=== PATIENT | female | born 1960 | race Caucasian/White ===

== ENCOUNTER → 2016-08-01 | Outpatient (CLI) | payer MEDICAID ==
--- NOTE | 2016-08-01 19:51 | WWHP ---
CHIEF COMPLAINT: The patient is here for her routine gynecologic exam. HPI: This is a 56-year-old G3, P2-0-1-2 with an LMP of 07/09/2016. The patient is on MonoNessa for control. The patient is without gynecologic complaints. PAST MEDICAL HISTORY: Unremarkable. MEDICATIONS: MonoNessa 1 daily. ALLERGIES: No known drug allergies. PAST SURGICAL HISTORY: D&C 1995 and eye surgery in the past. 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 SOCIAL HISTORY: She denies tobacco and drug use. She has about 3 alcoholic drinks per week. She has been since 2013 and this is her second marriage. 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 FAMILY HISTORY: Unchanged from the 2016 H&P. REVIEW OF SYSTEMS: She has lost 2 pounds over the last year. She denies respiratory, cardiac or GI problems. PHYSICAL EXAM: Blood pressure 109/71. Height 5 feet 3 inches. Weight 129 pounds. Temperature 98.0, pulse 57. This is a well-developed, well-nourished white female who is alert and oriented x3, in no acute distress. HEENT is within normal limits. NECK: Supple without mass or thyromegaly. CHEST AND LUNGS: Clear to auscultation. HEART: Regular rate and rhythm. Breasts are without mass or discharge. Axillary is negative for adenopathy. BACK: Negative for CVA tenderness. ABDOMEN: Soft, nontender, without palpable masses. PELVIC: Normal external genitalia. Cervix and vagina appear normal. There is no evidence of atrophy or prolapse. The uterus is midposition, nongravid size and nontender. There are no palpable adnexal masses or tenderness. Rectovaginal is negative for mass or tenderness and is negative for occult blood. EXTREMITIES: Nontender. IMPRESSION: 1. A 56-year-old female with normal gynecologic exam doing well on oral contraception. 2. Probable perimenopause based on previous FSH testing. PLAN: 1. Pap smear was deferred, since she had a normal one last year. 2. Self-breast examination was discussed. 3. Mammogram is due, and a slip was given to patient for this. 4. We will plan on repeating FSH testing at the latest part of her inactive pill week. Consider discontinuing oral contraception if FSH is greater than 50. 5. Osteoporosis prevention was discussed. She understands she should increase calcium intake to 120% of the daily value if we do stop control pills for elevated FSH. 6. I have recommended screening colonoscopy based on her age. 7. She will return in 1 year.
== END | disposition home or self-care (01) ==
LOC: WWCWWP 07:55
PROVIDERS: ATTEND Obstetrics & Gynecology

== ENCOUNTER → 2018-02-18 | Outpatient (CLI) | payer MEDICAID ==
[2018-02-18 08:04] VITALS: BP 110/60; PULSE 66; TEMP 98.3; BMI 21.6
--- NOTE | 2018-02-18 08:43 | P.HPOB ---
History of Present Illness H&P Date: 02/18/18 Chief Complaint: The patient is here for her routine gynecologic exam and mammogram. This is a 58-year-old 012 with an LMP of early February 2017. The patient states that has been one full year since her LMP. She discontinued -control pills in December 2016. She has used condoms since then. She has been experiencing hot flashes during the night and day. She can have several in one hour. She states they are tolerable. She is otherwise without complaints. Review of Systems The patient has lost 7 pounds over the last year. She denies respiratory, cardiac, or G.I. problems. 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 History of Any Multi-Drug Resistant Organisms: None Reported Additional Past Surgical History / Comment(s): cataract right eye, D&C 1994. Past Psychological History: No Psychological Hx Reported Smoking Status: Never smoker Past Alcohol Use History: Occasional (3 per week) Past Drug Use History: None Reported Additional History: She has been since 2013 and this is her 2nd marriage. 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 - Past Family History Father Family Medical History: Diabetes Mellitus Additional Family Medical History / Comment(s): Paternal grandmother had breast cancer. Medications and Allergies Home Medications Medication Instructions Recorded Confirmed Type No Known Home Medications 02/18/18 02/18/18 History Allergies Allergy/AdvReac Type Severity Reaction Status Date / Time No Known Allergies Allergy Unverified 02/18/18 08:02 Exam Vital Signs Temp Pulse BP 02/18/18 08:02 98.3 F 66 110/60 Intake and Output 02/17/18 02/18/18 02/18/18 22:59 06:59 14:59 Other: Weight 55.338 kg Height 5'3", BMI 21.6. This is a well-developed well-nourished white female who is alert and oriented times 3 in no acute distress. HEENT: Within normal limits. NECK: Supple without mass or thyromegaly. CHEST AND LUNGS: Clear to auscultation. HEART: Regular rate and rhythm. BREASTS: Are without mass or discharge. There is slight central nipple inversion on the left side which the patient states has been this way for many years. AXILLARY EXAM: Negative for adenopathy. BACK: Negative for CVA tenderness. ABDOMEN: Soft, nontender, without palpable masses. PELVIC EXAM: Normal external genitalia with minimal atrophy. Cervix and vagina appear normal without significant atrophy. There is no unusual discharge. There is no evidence of prolapse. The uterus is midposition, nongravid size and nontender. There are no palpable adnexal masses or tenderness. RECTAL EXAM: rectovaginal exam is negative for mass or tenderness and is negative for occult blood. EXTREMITIES: Nontender. IMPRESSION: 1. 58-year-old postmenopausal female with vasomotor symptoms and one year of amenorrhea. 2. Normal gynecologic exam. PLAN: 1. Pap smear was performed. 2. Self breast awareness was discussed with the patient. 3. Screening mammogram will be done today. 4. Osteoporosis prevention was discussed. 5. We have discussed changes with the menopause. She will call if her vasomotor symptoms are severe. She should not be able to get at this point. She was instructed to call if he has any vaginal bleeding. 6. I have recommended screening colonoscopy based on her age. She states she knows who she would like to see for this. 7. She will return in one year.
--- NOTE | 2018-02-20 13:19 | MM ---
Reason for exam: screening (asymptomatic). Last mammogram was performed 3 years and 8 months ago. History: Patient is postmenopausal and had first child at age 37. Family history of breast cancer in paternal grandmother. Taking hormonal contraceptives for 5 years 6 months. Physical Findings: A clinical breast exam by your physician is recommended on an annual basis and results should be correlated with mammographic findings. MG Screening Mammo w CAD Bilateral CC and MLO view(s) were taken. Prior study comparison: June 14, 2014, bilateral MG screening mammo w CAD. The breast tissue is extremely dense which could obscure a lesion on mammography. Faint punctate regional calcifications right breast. No significant changes when compared with prior studies. ASSESSMENT: Negative, BI-RAD 1 RECOMMENDATION: Routine screening mammogram of both breasts in 1 year. Patient should continue monthly self breast exams. A negative report should not preclude additional follow up of suspicious palpable abnormalities.
== END | disposition home or self-care (01) ==
LOC: WWCWWP 07:37
PROVIDERS: ATTEND Obstetrics & Gynecology
DX: Z12.31 Encounter for screening mammogram for malignant neoplasm of breast (principal)
CPT/HCPCS: 77067

== ENCOUNTER → 2019-12-10 | Outpatient (CLI) | payer MEDICAID | END | disposition home or self-care (01) | LOC: LABWHC1 11:09 | PROVIDERS: ATTEND Nurse Practitioner Family | DX: Z20.9 Contact with and (suspected) exposure to unspecified communicable disease (principal) ==

== ENCOUNTER 2021-05-12 10:35 | Inpatient (IN) | payer BC, MEDICAID ==
--- NOTE | 2021-05-12 11:23 | ED ---
Weakness HPI - General Chief complaint: Weakness Stated complaint: cough & weakness Time Seen by Provider: 05/12/21 10:46 Source: patient, RN notes reviewed Mode of arrival: ambulatory Limitations: no limitations - History of Present Illness Initial comments: 61-year-old female presents to the emergency department complaining of weakness for approximately the last week. She notes that she's had Covid like symptoms with decreased appetite, fever, weakness, cough. She notes that she came in today for evaluation. She notes that she became increasingly short of breath. Patient notes that she does not use at home oxygen. Patient was sent from [facility] to rule out pneumonia. Patient was resting comfortably in bed during the exam interview. She denied any chest pain headache nausea vomiting diarrhea constipation fatigue chills. - Related Data Home Medications Medication Instructions Recorded Confirmed No Known Home Medications 02/18/18 05/12/21 Allergies Allergy/AdvReac Type Severity Reaction Status Date / Time No Known Allergies Allergy Verified 05/12/21 11:58 Review of Systems ROS Statement: Those systems with pertinent positive or pertinent negative responses have been documented in the HPI. ROS Other: All systems not noted in ROS Statement are negative. 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 History of Any Multi-Drug Resistant Organisms: None Reported Additional Past Surgical History / Comment(s): cataract right eye, D&C 1994. Past Psychological History: No Psychological Hx Reported Smoking Status: Never smoker Past Alcohol Use History: Occasional Past Drug Use History: None Reported - Past Family History Father Family Medical History: Diabetes Mellitus Additional Family Medical History / Comment(s): Paternal grandmother had breast cancer. General Exam Limitations: no limitations General appearance: alert, in no apparent distress Head exam: Present: atraumatic, normocephalic, normal inspection Eye exam: Present: normal appearance, PERRL, EOMI. Absent: scleral icterus, conjunctival injection, periorbital swelling ENT exam: Present: normal exam, mucous membranes moist Neck exam: Present: normal inspection Respiratory exam: Present: normal lung sounds bilaterally. Absent: respiratory distress, wheezes, rales, rhonchi, stridor Cardiovascular Exam: Present: regular rate, normal rhythm, normal heart sounds. Absent: systolic murmur, diastolic murmur, rubs, gallop, clicks Extremities exam: Present: normal inspection, full ROM, normal capillary refill. Absent: tenderness, pedal edema, joint swelling, calf tenderness Neurological exam: Present: alert, oriented X3 Psychiatric exam: Present: normal affect, normal mood Skin exam: Present: warm, dry, intact, normal color. Absent: rash Course Vital Signs 05/12/21 05/12/21 10:36 12:16 Temperature 99.3 F 98.6 F Pulse Rate 78 68 Respiratory 18 18 Rate Blood Pressure 82/57 94/58 O2 Sat by Pulse 89 L 94 L Oximetry EKG Findings - EKG Comments: EKG Findings:: Ventricular rate 74 bpm, TN interval 140 ms, QRS duration 78 ms, QTC 439 ms, PRT axes 54/16/-8, normal sinus rhythm with low voltage QRS, nonspecific T-wave abnormality, abnormal ECG. Medical Decision Making - Medical Decision Making 61-year-old female with weakness for the past week, present with Covid like symptoms. Patient's she didn't saturation on room air at arrival was 89%. Labs, Covid test, chest x-ray, 2 L of oxygen via nasal cannula, 10 mg of Decadron ordered. Labs consistent with Covid infection with elevated CRP, LDH. Chest x-ray shows mild diffuse bilateral patchy infiltrates consistent with COVID-19 infection. Covid test positive. Given patient's hypoxia and need for some metal oxygen she will be admitted. Case discussed with Dr. Ingram, patient be admitted. Dr. Lomeli was consulted and OF the admit with pulmonary on consult. - Lab Data Result diagrams: 05/12/21 11:04 05/12/21 11:04 Lab Results 05/12/21 05/12/21 05/12/21 Range/Units 11:04 11:04 11:04 WBC 8.7 (3.8-10.6) k/uL RBC 4.06 (3.80-5.40) m/uL Hgb 12.6 (11.4-16.0) gm/dL Hct 35.7 (34.0-46.0) % MCV 87.9 (80.0-100.0) fL MCH 31.0 (25.0-35.0) pg MCHC 35.3 (31.0-37.0) g/dL RDW 12.6 (11.5-15.5) % Plt Count 359 (150-450) k/uL MPV 7.4 Neutrophils % 80 % Lymphocytes % 13 % Monocytes % 3 % Eosinophils % 0 % Basophils % 1 % Neutrophils # 7.0 (1.3-7.7) k/uL Lymphocytes # 1.1 (1.0-4.8) k/uL Monocytes # 0.3 (0-1.0) k/uL Eosinophils # 0.0 (0-0.7) k/uL Basophils # 0.0 (0-0.2) k/uL PT 9.8 (9.0-12.0) sec INR 0.9 (<1.2) APTT 23.6 (22.0-30.0) sec Sodium 131 L (137-145) mmol/L Potassium 4.8 (3.5-5.1) mmol/L Chloride 97 L (98-107) mmol/L Carbon Dioxide 26 (22-30) mmol/L Anion Gap 8 mmol/L BUN 16 (7-17) mg/dL Creatinine 0.81 (0.52-1.04) mg/dL Est GFR (CKD-EPI)AfAm >90 (>60 ml/min/1.73 sqM) Est GFR (CKD-EPI)NonAf 80 (>60 ml/min/1.73 sqM) Glucose 116 H (74-99) mg/dL Plasma Lactic Acid Waqas (0.7-2.0) mmol/L Calcium 8.7 (8.4-10.2) mg/dL Magnesium 2.4 H (1.6-2.3) mg/dL Total Bilirubin 0.4 (0.2-1.3) mg/dL AST 56 H (14-36) U/L ALT 29 (4-34) U/L Alkaline Phosphatase 54 (38-126) U/L Lactate Dehydrogenase 1688 H (313-618) U/L C-Reactive Protein 5.3 H (<1.0) mg/dL Total Protein 6.7 (6.3-8.2) g/dL Albumin 3.7 (3.5-5.0) g/dL Coronavirus (PCR) (Not Detectd) 05/12/21 05/12/21 Range/Units 11:04 11:04 WBC (3.8-10.6) k/uL RBC (3.80-5.40) m/uL Hgb (11.4-16.0) gm/dL Hct (34.0-46.0) % MCV (80.0-100.0) fL MCH (25.0-35.0) pg MCHC (31.0-37.0) g/dL RDW (11.5-15.5) % Plt Count (150-450) k/uL MPV Neutrophils % % Lymphocytes % % Monocytes % % Eosinophils % % Basophils % % Neutrophils # (1.3-7.7) k/uL Lymphocytes # (1.0-4.8) k/uL Monocytes # (0-1.0) k/uL Eosinophils # (0-0.7) k/uL Basophils # (0-0.2) k/uL PT (9.0-12.0) sec INR (<1.2) APTT (22.0-30.0) sec Sodium (137-145) mmol/L Potassium (3.5-5.1) mmol/L Chloride (98-107) mmol/L Carbon Dioxide (22-30) mmol/L Anion Gap mmol/L BUN (7-17) mg/dL Creatinine (0.52-1.04) mg/dL Est GFR (CKD-EPI)AfAm (>60 ml/min/1.73 sqM) Est GFR (CKD-EPI)NonAf (>60 ml/min/1.73 sqM) Glucose (74-99) mg/dL Plasma Lactic Acid Waqas 1.3 (0.7-2.0) mmol/L Calcium (8.4-10.2) mg/dL Magnesium (1.6-2.3) mg/dL Total Bilirubin (0.2-1.3) mg/dL AST (14-36) U/L ALT (4-34) U/L Alkaline Phosphatase (38-126) U/L Lactate Dehydrogenase (313-618) U/L C-Reactive Protein (<1.0) mg/dL Total Protein (6.3-8.2) g/dL Albumin (3.5-5.0) g/dL Coronavirus (PCR) Detected A (Not Detectd) - EKG Data -: EKG Interpreted by Mn EKG shows normal: sinus rhythm Rate: normal EKG Comments: Ventricular rate 74 bpm, TN interval 140 ms, QRS duration 78 ms, QTC 439 ms, PRT axes 54/16/-8, normal sinus rhythm with low voltage QRS, nonspecific T- wave abnormality, abnormal ECG. - Radiology Data Radiology results: report reviewed, image reviewed Chest x-ray: Mild diffuse increase in lung markings mid lower lung mitchell. Disposition Clinical Impression: Pneumonia due to COVID-19 virus, Hypoxia, Hyponatremia Disposition: ADMITTED IP TO THIS HOSP Condition: Stable Is patient prescribed a controlled substance at d/c from ED?: No Referrals: Andrea Cruz MD [Primary Care Provider] - 1-2 days Time of Disposition: 12:44
--- NOTE | 2021-05-12 11:27 | XR ---
EXAMINATION TYPE: XR chest 1V portable DATE OF EXAM: 05/12/2021 COMPARISON: None INDICATION: Cough and congestion TECHNIQUE: Single frontal view of the chest is obtained. FINDINGS: The heart size is normal. The pulmonary vasculature is normal. Mild infiltrate is present diffusely in the mid lower lung field. Correlate for atypical pneumonia IMPRESSION: 1. Mild diffuse increase in lung markings mid and lower lung mitchell. Correlate for atypical
[2021-05-12 11:40] LABS: Basophils % (A) 1 %; Eosinophils % (A) 0 %; HCT 35.7 % (34.0-46.0); HGB 12.6 gm/dL (11.4-16.0); Lymphocytes # (A) 1.1 k/uL (1.0-4.8); Lymphocytes % (A) 13 %; MCHC 35.3 g/dL (31.0-37.0); MCV 87.9 fL (80.0-100.0); Mean Platelet Volume 7.4; Monocytes # (A) 0.3 k/uL (0-1.0); Monocytes % (A) 3 %; Neutrophils % (A) 80 %; Platelet Count 359 k/uL (150-450); RBC 4.06 m/uL (3.80-5.40); RDW 12.6 % (11.5-15.5); WBC 8.7 k/uL (3.8-10.6)
[2021-05-12 11:50] LABS: INR 0.9 (<1.2); Partial Thromboplastin Time 23.6 sec (22.0-30.0); Prothrombin Time 9.8 sec (9.0-12.0)
[2021-05-12 11:55] LABS: ALT 29 U/L (4-34); AST 56 U/L (14-36); African American GFR (CKD) >90 (>60 ml/min/1.73 sqM); Albumin 3.7 g/dL (3.5-5.0); Alkaline Phosphatase 54 U/L (38-126); Anion Gap 8 mmol/L; Blood Urea Nitrogen 16 mg/dL (7-17); C Reactive Protein 5.3 mg/dL (<1.0); Calcium 8.7 mg/dL (8.4-10.2); Carbon Dioxide 26 mmol/L (22-30); Chloride 97 mmol/L (98-107); Glucose 116 mg/dL (74-99); LDH 1688 U/L (313-618); Magnesium 2.4 mg/dL (1.6-2.3); Non-African American GFR(CKD) 80 (>60 ml/min/1.73 sqM); Potassium 4.8 mmol/L (3.5-5.1); Sodium 131 mmol/L (137-145); Total Bilirubin 0.4 mg/dL (0.2-1.3); Total Protein 6.7 g/dL (6.3-8.2)
[2021-05-12] MEDS ORDERED: DEXAMETHASONE SOD PHOSPHATE 10 MG/ML 1 ML VIAL IVP STA (12:08)
[2021-05-12] MEDS ORDERED: SODIUM CHLORIDE 0.9% 1,000 ML IV STA (12:17)
[2021-05-12] MEDS ORDERED: NALOXONE 0.4 MG/ML 1 ML VIAL IV PRN (12:44)
[2021-05-12] MEDS: SODIUM CHLORIDE 0.9% 1,000 ML IV SCH ×2 (14:56→22:11)
--- NOTE | 2021-05-12 16:24 | P.CNPUL ---
History of Present Illness Consult date: 05/12/21 Reason for consult: dyspnea, hypoxemia, pneumonia History of present illness: 61-year-old female patient, presented to the hospital because of one-week history of worsening shortness of breath and the cough and generalized weakness and fatigue. The patient also diminished appetite, no nausea or vomiting abdominal pain. No headaches. The patient was feeling rundown. She was hypoxic and currently she is on 2 L of oxygen by nasal cannula to bring his saturation above 90%. Chest x-ray showing bilateral mid and lower lung mitchell pulmonary infiltrates. The patient was diagnosed having COVID 19 infection. She is not vaccinated. She has not received any outpatient treatment. She is hemodynamically stable. Correlation profile is normal. LDH level is 1688, CRP level is at 5.3, sodium level is at 131, white cell count is 8.7. She was started on Decadron. She started on Lovenox. Review of Systems Constitutional: Reports fatigue, Reports weakness Eyes: denies as per HPI, denies blurred vision, denies bulging eye, denies decreased vision, denies diplopia, denies discharge, denies dry eye, denies irritation, denies itching, denies pain, denies photophobia, denies loss of peripheral vision, denies loss of vision, denies tunnel vision/blind spots Ears: deny: decreased hearing, ear discharge, earache, tinnitus Breasts: absent: as per HPI, change in shape, gynecomastia, masses, nipple discharge, pain, skin changes, swelling Cardiovascular: Reports decreased exercise tolerance, Reports dyspnea on exertion Respiratory: Reports dyspnea Gastrointestinal: Reports as per HPI Genitourinary: Reports as per HPI Menstruation: Reports as per HPI Musculoskeletal: Reports as per HPI Musculoskeletal: absent: ankle pain, ankle stiffness, ankle swelling, as per HPI, elbow pain, elbow stiffness, elbow swelling, foot pain, foot stiffness, foot swelling, hand pain, hand stiffness, hand swelling, hip pain, hip stiffness, hip swelling, knee pain, knee stiffness, knee swelling, shoulder pain, shoulder stiffness, shoulder swelling, wrist pain, wrist stiffness, wrist swelling Integumentary: Reports as per HPI Neurological: Reports as per HPI, Reports weakness Psychiatric: Reports as per HPI Endocrine: Reports as per HPI Hematologic/Lymphatic: Reports as per HPI Allergic/Immunologic: Reports as per HPI Past Medical History Past Medical History: No Reported History 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 History of Any Multi-Drug Resistant Organisms: None Reported Additional Past Surgical History / Comment(s): cataract right eye, D&C 1994. Past Psychological History: No Psychological Hx Reported Smoking Status: Never smoker Past Alcohol Use History: Occasional Past Drug Use History: None Reported - Past Family History Father Family Medical History: Diabetes Mellitus Additional Family Medical History / Comment(s): Paternal grandmother had breast cancer. Medications and Allergies Home Medications Medication Instructions Recorded Confirmed Type No Known Home Medications 02/18/18 05/12/21 History Allergies Allergy/AdvReac Type Severity Reaction Status Date / Time No Known Allergies Allergy Verified 05/12/21 11:58 Physical Exam Vitals: Vital Signs Temp Pulse Resp BP Pulse Ox 05/12/21 15:09 93 L 05/12/21 14:50 98.5 F 74 18 96/59 88 L 05/12/21 12:16 98.6 F 68 18 94/58 94 L 05/12/21 10:36 99.3 F 78 18 82/57 89 L Intake and Output 05/12/21 05/12/21 05/12/21 06:59 14:59 22:59 Other: Weight 56.699 kg General appearance: alert, in no apparent distress, the patient has normal breathing. Breathing is nonlabored and the patient is on 2 L about 2 by nasal cannula. Head exam: Present: atraumatic, normocephalic, normal inspection Eye exam: Present: normal appearance, PERRL, EOMI. Absent: scleral icterus, conjunctival injection, periorbital swelling ENT exam: Present: normal exam, mucous membranes moist Neck exam: Present: normal inspection Respiratory exam: The patient has crackles in the mid and lower lung mitchell bilaterally. Cardiovascular Exam: Present: regular rate, normal rhythm, normal heart sounds. Absent: systolic murmur, diastolic murmur, rubs, gallop, clicks Extremities exam: Present: normal inspection, full ROM, normal capillary refill. Absent: tenderness, pedal edema, joint swelling, calf tenderness Neurological exam: Present: alert, oriented X3 Psychiatric exam: Present: normal affect, normal mood Skin exam: Present: warm, dry, intact, normal color. Absent: rash Results - Laboratory Findings CBC and BMP: 05/12/21 11:04 05/12/21 11:04 PT/INR, D-dimer PT 9.8 sec (9.0-12.0) 05/12/21 11:04 INR 0.9 (<1.2) 05/12/21 11:04 Abnormal lab findings: Abnormal Labs 05/12/21 05/12/21 11:04 11:04 Sodium 131 L Chloride 97 L Glucose 116 H Magnesium 2.4 H AST 56 H Lactate Dehydrogenase 1688 H C-Reactive Protein 5.3 H Coronavirus (PCR) Detected A - Diagnostic Findings Chest x-ray: image reviewed Assessment and Plan Plan: 1 acute COVID 19 related pneumonia. Symptoms onset was less than a week. Patient was diagnosed today. The patient is not vaccinated. 2 acute hypoxic respiratory failure secondary to above 3 elevated inflammatory markers secondary to above 4 constant pressure symptoms secondary to above Plan Oxygen 2 L to maintain a saturation above 90% Stop the patient come initial Decadron 6 mg he'll daily and Remdesivir per protocol. The patient falls within the window and she qualifies for Remdesivir Lovenox 40 mg subcu for DVT prophylaxis Check pro calcitonin level Multivitamins including vitamin C and vitamin D and zinc We'll continue to follow.
[2021-05-12] MEDS ORDERED: REMDESIVIR 200 MG in SODIUM CHLORIDE 0.9% 250 ML IVPB ONE (16:30)
--- NOTE | 2021-05-12 21:56 | P.HPIM ---
History of Present Illness H&P Date: 05/12/21 Chief Complaint: Generalized weakness and fatigue. Patient is a 61-year-old female without significant past medical history presents to ER with complaints of generalized weakness and fatigue for the past 1 week. Patient does have decreased appetite and subjective fevers and cough without sputum production. Came to ER for evaluation. She is also getting more short of breath. Otherwise denied any complaints of chest pain. No nausea vomiting or abdominal pain or diarrhea. On admission blood pressure was 82/57 pulse ox 89% on room air, heart rate 78 and T-max 99.3. Chest x-ray showed mild diffuse increase in lung markings mild in lower lung mitchell. Correlate for atypical pneumonia. EKG showed normal sinus rhythm. Laboratory showed sodium 131 potassium 4.8 chloride 97 BUN 16 and creatinine 0.81 Magnesium 2.4 ferritin 06/12/2007 AST 56 ALT 29 alk phos 54 LDH 1688 CRP 5.3 and procalcitonin level is 0.06 Coronavirus PCR detected. Review of Systems Constitutional: Does have subjective fevers and chills. Generalized weakness and fatigue.. Abdomen: Patient denied nausea vomiting and diarrhea and abdominal pain. Cardiovascular: Patient denies any chest pain +short of breath no palpitations. Respiratory: Complaints of cough without sputum production and shortness of breath. Neurologic: Patient denied any numbness or tingling headache. Musculoskeletal: Patient denies any complaints of joint swelling or deformity. Skin: Negative Psychiatric: Negative Endocrine: No heat or cold intolerance. No recent weight gain. Genitourinary: No dysuria or hematuria. 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 History of Any Multi-Drug Resistant Organisms: None Reported Additional Past Surgical History / Comment(s): cataract right eye, D&C 1994. Past Psychological History: No Psychological Hx Reported Smoking Status: Never smoker Past Alcohol Use History: Occasional Past Drug Use History: None Reported - Past Family History Father Family Medical History: Diabetes Mellitus Additional Family Medical History / Comment(s): Paternal grandmother had breast cancer. Medications and Allergies Home Medications Medication Instructions Recorded Confirmed Type No Known Home Medications 02/18/18 05/12/21 History Allergies Allergy/AdvReac Type Severity Reaction Status Date / Time No Known Allergies Allergy Verified 05/12/21 11:58 Physical Exam Vitals: Vital Signs Temp Pulse Pulse Resp BP BP Pulse Ox 05/12/21 21:04 99.1 F 83 15 99/63 90 L 05/12/21 19:19 65 20 98/59 92 L 05/12/21 17:28 98.6 F 74 20 98/63 92 L 05/12/21 16:35 88 18 89 L 05/12/21 16:30 103 H 83 L 05/12/21 15:09 93 L 05/12/21 14:50 98.5 F 74 18 96/59 88 L 05/12/21 12:16 98.6 F 68 18 94/58 94 L 05/12/21 10:36 99.3 F 78 18 82/57 89 L Intake and Output 05/12/21 05/12/21 05/12/21 06:59 14:59 22:59 Other: Weight 56.699 kg PHYSICAL EXAMINATION: Patient is lying in the bed comfortably, no acute distress, awake alert and oriented.. HEENT: Normocephalic. Neck is supple. Pupils reactive. Nostrils clear. Oral cavity is moist. Neck reveals no JVD, carotid bruits, or thyromegaly. CHEST EXAMINATION: Trachea is central. Symmetrical expansion. Scattered coarse sounds. Nonlabored breathing.. CARDIAC: Normal S1, S2 with no gallops. No murmurs ABDOMEN: Soft. Bowel sounds normal. No organomegaly. No abdominal bruits. Extremities: reveal no edema. No clubbing or cyanosis Neurologically awake, alert, oriented x3 with well-coordinated movements. No focal deficits noted Skin: No rash or skin lesions. Psychiatric: Cooperative. Nonsuicidal Musculoskeletal: No joint swelling or deformity. Normal range of motion. Results CBC & Chem 7: 05/12/21 11:04 05/12/21 11:04 Labs: Abnormal Lab Results - Last 24 Hours (Table) 05/12/21 05/12/21 Range/Units 11:04 11:04 Sodium 131 L (137-145) mmol/L Chloride 97 L (98-107) mmol/L Glucose 116 H (74-99) mg/dL Magnesium 2.4 H (1.6-2.3) mg/dL Ferritin 1308.0 H (10.0-291.0) ng/mL AST 56 H (14-36) U/L Lactate Dehydrogenase 1688 H (313-618) U/L C-Reactive Protein 5.3 H (<1.0) mg/dL Coronavirus (PCR) Detected A (Not Detectd) Assessment and Plan Assessment: Acute hypoxic respiratory failure secondary to COVID-19 pneumonia Acute COVID-19 pneumonia symptoms for the past 1 week. Patient is not vacci nated. Elevated inflammatory markers secondary to COVID-19 infection Hypovolemic hyponatremia DVT prophylaxis. Plan: Patient with cannula oxygen supplementation currently on 2 L oxygen via nasal cannula. Patient is a candidate for remdesivir therapy. Continue with dexamethasone multivitamins and Lovenox subcu. GI prophylaxis. Pulmonary is on board. Follow closely. Time with Patient: Greater than 30
[2021-05-12] MEDS: DEXAMETHASONE SOD PHOSPHATE 10 MG/ML 1 ML VIAL IVP SCH (22:07)
[2021-05-12] MEDS: FAMOTIDINE 20 MG TAB PO SCH (22:08)
[2021-05-13] MEDS: SODIUM CHLORIDE 0.9% 1,000 ML IV SCH ×3 (04:18→20:16)
[2021-05-13] MEDS: CHOLECALCIFEROL 25 MCG (1000 IU) TABLET PO SCH (08:40)
[2021-05-13] MEDS: FAMOTIDINE 20 MG TAB PO SCH ×2 (08:40→20:06)
[2021-05-13] MEDS: ASCORBIC ACID 500 MG TAB PO SCH (08:40)
[2021-05-13] MEDS: ZINC SULFATE 220 MG CAP PO SCH (08:40)
[2021-05-13] MEDS: DEXAMETHASONE SOD PHOSPHATE 10 MG/ML 1 ML VIAL IVP SCH ×2 (08:40→20:06)
[2021-05-13] MEDS: ENOXAPARIN 40 MG/0.4 ML SYRINGE SQ SCH (08:40)
[2021-05-13 10:36] LABS: Basophils % (A) 0 %; Eosinophils % (A) 0 %; HCT 34.3 % (34.0-46.0); HGB 11.7 gm/dL (11.4-16.0); Lymphocytes # (A) 1.3 k/uL (1.0-4.8); Lymphocytes % (A) 18 %; MCH 31.1 pg (25.0-35.0); MCHC 34.3 g/dL (31.0-37.0); MCV 90.6 fL (80.0-100.0); Mean Platelet Volume 7.3; Monocytes # (A) 0.3 k/uL (0-1.0); Monocytes % (A) 4 %; Neutrophils # (A) 5.3 k/uL (1.3-7.7); Neutrophils % (A) 73 %; Platelet Count 374 k/uL (150-450); RBC 3.78 m/uL (3.80-5.40); RDW 12.6 % (11.5-15.5); WBC 7.3 k/uL (3.8-10.6)
[2021-05-13 11:00] LABS: African American GFR (CKD) >90 (>60 ml/min/1.73 sqM); Anion Gap 5 mmol/L; Blood Urea Nitrogen 12 mg/dL (7-17); Calcium 8.5 mg/dL (8.4-10.2); Carbon Dioxide 23 mmol/L (22-30); Chloride 109 mmol/L (98-107); Glucose 231 mg/dL (74-99); Non-African American GFR(CKD) >90 (>60 ml/min/1.73 sqM); Potassium 4.5 mmol/L (3.5-5.1); Sodium 137 mmol/L (137-145)
--- NOTE | 2021-05-13 15:34 | P.PN ---
Subjective Progress Note Date: 05/13/21 61-year-old female patient, presented to the hospital because of one-week history of worsening shortness of breath and the cough and generalized weakness and fatigue. The patient also diminished appetite, no nausea or vomiting abdominal pain. No headaches. The patient was feeling rundown. She was hypo xic and currently she is on 2 L of oxygen by nasal cannula to bring his saturation above 90%. Chest x-ray showing bilateral mid and lower lung mitchell pulmonary infiltrates. The patient was diagnosed having COVID 19 infection. She is not vaccinated. She has not received any outpatient treatment. She is hemodynamically stable. Correlation profile is normal. LDH level is 1688, CRP level is at 5.3, sodium level is at 131, white cell count is 8.7. She was started on Decadron. She started on Lovenox. The patient is seen today 05/13/2021 in follow-up on the regular medical floor. She is currently sitting up in bed. Awake and alert in no acute distress. Doing about the same today compared to yesterday. No better but no worse. Maintaining O2 saturations in the low 90s on 4 L/m per nasal cannula. She's been afebrile. Hemodynamically stable. White count 7.3. Hemoglobin 11.7. Sod ium 137. Potassium 4.5. Creatinine 0.71. Pro-calcitonin 0.06. She is continued on Lovenox, Decadron, vitamin supplements. This is day #2 of Remdesivir. Objective - Vital Signs Vital signs: Vital Signs Temp 97.8 F 05/13/21 14:00 Pulse 58 L 05/13/21 14:00 Resp 18 05/13/21 14:00 BP 97/62 05/13/21 14:00 Pulse Ox 93 L 05/13/21 14:00 Intake & Output 05/12/21 05/13/21 05/13/21 18:59 06:59 18:59 Weight 56.699 kg 56.699 kg Other: # Voids 1 - Exam GENERAL EXAM: Alert, very pleasant 61-year-old female patient, on 4 L nasal cannula, fairly comfortable in no apparent distress. HEAD: Normocephalic. EYES: Normal reaction of pupils, equal size. NOSE: Clear with pink turbinates. THROAT: No erythema or exudates. NECK: No masses, no JVD. CHEST: No chest wall deformity. LUNGS: Equal air entry with crackles in the bilateral bases. CVS: S1 and S2 normal with no audible murmur, regular rhythm. ABDOMEN: No hepatosplenomegaly, normal bowel sounds, no guarding or rigidity. SPINE: No scoliosis or deformity SKIN: No rashes CENTRAL NERVOUS SYSTEM: No focal deficits, tone is normal in all 4 extremities. EXTREMITIES: There is no peripheral edema. No clubbing, no cyanosis. Peripheral pulses are intact. - Labs CBC & Chem 7: 05/13/21 09:54 05/13/21 09:54 Labs: Abnormal Lab Results - Last 24 Hours (Table) 05/12/21 05/13/21 05/13/21 Range/Units 11:04 09:54 09:54 RBC 3.78 L (3.80-5.40) m/uL Chloride 109 H (98-107) mmol/L Glucose 231 H (74-99) mg/dL Ferritin 1308.0 H (10.0-291.0) ng/mL Assessment and Plan Assessment: 1 acute COVID 19 related pneumonia. Symptoms onset was less than a week. Patient was diagnosed today. The patient is not vaccinated. 2 acute hypoxic respiratory failure secondary to above 3 elevated inflammatory markers secondary to above 4 constant pressure symptoms secondary to above Plan The patient was seen and evaluated Labs reviewed, pro-calcitonin normal Day #2 of Remdesivir Continue Lovenox, Decadron, vitamin supplements Increase her activity as tolerated Titrate the FiO2 as tolerated We will continue to follow
[2021-05-13] MEDS: REMDESIVIR 100 MG in SODIUM CHLORIDE 0.9% 250 ML IVPB SCH (17:50)
[2021-05-14] MEDS: SODIUM CHLORIDE 0.9% 1,000 ML IV SCH ×3 (03:04→16:07)
[2021-05-14] MEDS: ENOXAPARIN 40 MG/0.4 ML SYRINGE SQ SCH (07:11)
[2021-05-14] MEDS: CHOLECALCIFEROL 25 MCG (1000 IU) TABLET PO SCH (07:11)
[2021-05-14] MEDS: DEXAMETHASONE SOD PHOSPHATE 10 MG/ML 1 ML VIAL IVP SCH ×2 (07:11→22:09)
[2021-05-14] MEDS: ASCORBIC ACID 500 MG TAB PO SCH (07:11)
[2021-05-14] MEDS: FAMOTIDINE 20 MG TAB PO SCH ×2 (07:11→22:10)
[2021-05-14] MEDS: ZINC SULFATE 220 MG CAP PO SCH (07:11)
[2021-05-14] MEDS: REMDESIVIR 100 MG in SODIUM CHLORIDE 0.9% 250 ML IVPB SCH (16:07)
--- NOTE | 2021-05-14 16:11 | P.PN ---
Subjective Progress Note Date: 05/14/21 61-year-old female patient, presented to the hospital because of one-week history of worsening shortness of breath and the cough and generalized weakness and fatigue. The patient also diminished appetite, no nausea or vomiting abdominal pain. No headaches. The patient was feeling rundown. She was hypo xic and currently she is on 2 L of oxygen by nasal cannula to bring his saturation above 90%. Chest x-ray showing bilateral mid and lower lung mitchell pulmonary infiltrates. The patient was diagnosed having COVID 19 infection. She is not vaccinated. She has not received any outpatient treatment. She is hemodynamically stable. Correlation profile is normal. LDH level is 1688, CRP level is at 5.3, sodium level is at 131, white cell count is 8.7. She was started on Decadron. She started on Lovenox. The patient is seen today 05/13/2021 in follow-up on the regular medical floor. She is currently sitting up in bed. Awake and alert in no acute distress. Doing about the same today compared to yesterday. No better but no worse. Maintaining O2 saturations in the low 90s on 4 L/m per nasal cannula. She's been afebrile. Hemodynamically stable. White count 7.3. Hemoglobin 11.7. Sod ium 137. Potassium 4.5. Creatinine 0.71. Pro-calcitonin 0.06. She is continued on Lovenox, Decadron, vitamin supplements. This is day #2 of Remdesivir. The patient is seen today 05/14/2021 in follow-up on the regular medical floor. She is currently resting comfortably in bed. Awake and alert in no acute distress. Still on 4 L nasal cannula to maintain O2 saturations in the 90s. She denies any worsening shortness of breath, cough or congestion. No worse but not much improvement yet. Still quite fatigued and weak. She is continued on Decadron, Lovenox, vitamin supplements. This is day #3 of Remdesivir. Objective - Vital Signs Vital signs: Vital Signs Temp 98.1 F 05/14/21 14:00 Pulse 60 05/14/21 14:00 Resp 20 05/14/21 14:00 BP 107/61 05/14/21 14:00 Pulse Ox 94 L 05/14/21 14:00 Intake & Output 05/13/21 05/14/21 05/14/21 18:59 06:59 18:59 Other: # Voids 3 1 - Exam GENERAL EXAM: Alert, very pleasant 61-year-old female patient, on 4 L nasal cannula, fairly comfortable in no apparent distress. HEAD: Normocephalic. EYES: Normal reaction of pupils, equal size. NOSE: Clear with pink turbinates. THROAT: No erythema or exudates. NECK: No masses, no JVD. CHEST: No chest wall deformity. LUNGS: Equal air entry with crackles in the bilateral bases. CVS: S1 and S2 normal with no audible murmur, regular rhythm. ABDOMEN: No hepatosplenomegaly, normal bowel sounds, no guarding or rigidity. SPINE: No scoliosis or deformity SKIN: No rashes CENTRAL NERVOUS SYSTEM: No focal deficits, tone is normal in all 4 extremities. EXTREMITIES: There is no peripheral edema. No clubbing, no cyanosis. Peripheral pulses are intact. - Labs CBC & Chem 7: 05/13/21 09:54 05/13/21 09:54 Assessment and Plan Assessment: 1 acute COVID 19 related pneumonia. Symptoms onset was less than a week. Patient was diagnosed today. The patient is not vaccinated. Initiated on Remd esivir. 2 acute hypoxic respiratory failure secondary to above 3 elevated inflammatory markers secondary to above 4 constant pressure symptoms secondary to above Plan The patient was seen and evaluated Stable and on 4 L nasal cannula Day #3 of Remdesivir Continue Lovenox, Decadron, vitamin supplements Increase her activity as tolerated Titrate the FiO2 as tolerated We will continue to follow
--- NOTE | 2021-05-14 23:39 | P.PN ---
Subjective Progress Note Date: 05/13/21 Principal diagnosis: Acute hypoxic respiratory failure secondary to COVID-19 pneumonia. Patient is a 61-year-old female without significant past medical history presents to ER with complaints of generalized weakness and fatigue for the past 1 week. Patient does have decreased appetite and subjective fevers and cough without sputum production. Came to ER for evaluation. She is also getting more short of breath. Otherwise denied any complaints of chest pain. No nausea vomiting or abdominal pain or diarrhea. On admission blood pressure was 82/57 pulse ox 89% on room air, heart rate 78 and T-max 99.3. Chest x-ray showed mild diffuse increase in lung markings mild in lower lung mitchell. Correlate for atypical pneumonia. EKG showed normal sinus rhythm. Laboratory showed sodium 131 potassium 4.8 chloride 97 BUN 16 and creatinine 0.81 Magnesium 2.4 ferritin 06/12/2007 AST 56 ALT 29 alk phos 54 LDH 1688 CRP 5.3 and procalcitonin level is 0.06 Coronavirus PCR detected. 05/13/2021 Patient is currently sitting up in the bed. Able to ambulate to the bathroom without much shortness of breath. Breathing status is getting better. Currently on 4 L oxygen via nasal cannula and saturating at 90%. No complaints of nausea or vomiting. No diarrhea. No fever no chills. Laboratory showed WBC 7.3 hemoglobin 9.7 and platelets 374 Sodium level improved to 137 chloride 109 BUN 12 and creatinine 0.71 Patient is being current dexamethasone and Lovenox and remdesivir course. Pulmonary is on board. Current medications reviewed. Objective - Vital Signs Vital signs: Vital Signs Temp 97.8 F 05/13/21 14:00 Pulse 58 L 05/13/21 14:00 Resp 18 05/13/21 14:00 BP 97/62 05/13/21 14:00 Pulse Ox 93 L 05/13/21 14:00 Intake & Output 05/12/21 05/13/21 05/13/21 18:59 06:59 18:59 Weight 56.699 kg 56.699 kg Other: # Voids 1 - Exam PHYSICAL EXAMINATION: Patient is lying in the bed comfortably, no acute distress, awake alert and oriented.. HEENT: Normocephalic. Neck is supple. Pupils reactive. Nostrils clear. Oral c avity is moist. Neck reveals no JVD, carotid bruits, or thyromegaly. CHEST EXAMINATION: Trachea is central. Symmetrical expansion. Scattered coarse sounds. Nonlabored breathing.. CARDIAC: Normal S1, S2 with no gallops. No murmurs ABDOMEN: Soft. Bowel sounds normal. No organomegaly. No abdominal bruits. Extremities: reveal no edema. No clubbing or cyanosis Neurologically awake, alert, oriented x3 with well-coordinated movements. No focal deficits noted Skin: No rash or skin lesions. Psychiatric: Cooperative. Nonsuicidal Musculoskeletal: No joint swelling or deformity. Normal range of motion. - Labs CBC & Chem 7: 05/13/21 09:54 05/13/21 09:54 Labs: Abnormal Lab Results - Last 24 Hours (Table) 05/12/21 05/13/21 05/13/21 Range/Units 11:04 09:54 09:54 RBC 3.78 L (3.80-5.40) m/uL Chloride 109 H (98-107) mmol/L Glucose 231 H (74-99) mg/dL Ferritin 1308.0 H (10.0-291.0) ng/mL Assessment and Plan Assessment: Acute hypoxic respiratory failure secondary to COVID-19 pneumonia Acute COVID-19 pneumonia symptoms for the past 1 week. Patient is not vaccinated. Elevated inflammatory markers secondary to COVID-19 infection Hypovolemic hyponatremia DVT prophylaxis. Plan: Patient with cannula oxygen supplementation currently on 4 L oxygen via nasal cannula. Patient was started on remdesivir therapy. Continue with dexamethasone multivitamins and Lovenox subcu. GI prophylaxis. Pulmonary is on board. Follow closely. Time with Patient: Greater than 30
--- NOTE | 2021-05-14 23:41 | P.PN ---
Subjective Progress Note Date: 05/14/21 Principal diagnosis: Acute hypoxic respiratory failure secondary to COVID-19 pneumonia. Patient is a 61-year-old female without significant past medical history presents to ER with complaints of generalized weakness and fatigue for the past 1 week. Patient does have decreased appetite and subjective fevers and cough without sputum production. Came to ER for evaluation. She is also getting more short of breath. Otherwise denied any complaints of chest pain. No nausea vomiting or abdominal pain or diarrhea. On admission blood pressure was 82/57 pulse ox 89% on room air, heart rate 78 and T-max 99.3. Chest x-ray showed mild diffuse increase in lung markings mild in lower lung mitchell. Correlate for atypical pneumonia. EKG showed normal sinus rhythm. Laboratory showed sodium 131 potassium 4.8 chloride 97 BUN 16 and creatinine 0.81 Magnesium 2.4 ferritin 06/12/2007 AST 56 ALT 29 alk phos 54 LDH 1688 CRP 5.3 and procalcitonin level is 0.06 Coronavirus PCR detected. 05/13/2021 Patient is currently sitting up in the bed. Able to ambulate to the bathroom without much shortness of breath. Breathing status is getting better. Currently on 4 L oxygen via nasal cannula and saturating at 90%. No complaints of nausea or vomiting. No diarrhea. No fever no chills. Laboratory showed WBC 7.3 hemoglobin 9.7 and platelets 374 Sodium level improved to 137 chloride 109 BUN 12 and creatinine 0.71 Patient is being current dexamethasone and Lovenox and remdesivir course. Pulmonary is on board. 05/14/2021 Patient is currently able to stand and walk to the bathroom. Requiring oxygen at 4 L via nasal cannula and saturating at 91%. Tolerating oral diet. IV fluids will be reduced to 40 cc/h. No complaints of chest pain or shortness of breath. Patient is being current dexamethasone Lovenox and remdesivir course. Continue on multivitamin supplementation. Pulmonary is on board. Laboratories are reviewed. Current medications reviewed. Objective - Vital Signs Vital signs: Vital Signs Temp 99.0 F 05/14/21 17:42 Pulse 58 L 05/14/21 17:42 Resp 20 05/14/21 17:42 BP 107/65 05/14/21 17:42 Pulse Ox 91 L 05/14/21 17:42 Intake & Output 05/14/21 05/14/21 05/15/21 06:59 18:59 06:59 Other: # Voids 1 - Exam PHYSICAL EXAMINATION: Patient is lying in the bed comfortably, no acute distress, awake alert and oriented.. HEENT: Normocephalic. Neck is supple. Pupils reactive. Nostrils clear. Oral cavity is moist. Neck reveals no JVD, carotid bruits, or thyromegaly. CHEST EXAMINATION: Trachea is central. Symmetrical expansion. Scattered coarse sounds. Nonlabored breathing.. CARDIAC: Normal S1, S2 with no gallops. No murmurs ABDOMEN: Soft. Bowel sounds normal. No organomegaly. No abdominal bruits. Extremities: reveal no edema. No clubbing or cyanosis Neurologically awake, alert, oriented x3 with well-coordinated movements. No focal deficits noted Skin: No rash or skin lesions. Psychiatric: Cooperative. Nonsuicidal Musculoskeletal: No joint swelling or deformity. Normal range of motion. - Labs CBC & Chem 7: 05/13/21 09:54 05/13/21 09:54 Assessment and Plan Assessment: Acute hypoxic respiratory failure secondary to COVID-19 pneumonia Acute COVID-19 pneumonia symptoms for the past 1 week. Patient is not vaccinated. Elevated inflammatory markers secondary to COVID-19 infection Hypovolemic hyponatremia DVT prophylaxis. Plan: Patient with cannula oxygen supplementation currently on 4 L oxygen via nasal cannula. Patient was started on remdesivir therapy. Continue with dexamethasone multivitamins and Lovenox subcu. GI prophylaxis. Pulmonary is on board. Follow closely. Time with Patient: Greater than 30
[2021-05-15] MEDS: SODIUM CHLORIDE 0.9% 1,000 ML IV SCH ×2 (06:53→22:03)
--- NOTE | 2021-05-15 07:12 | XR ---
EXAMINATION TYPE: XR chest 1V portable DATE OF EXAM: 05/15/2021 HISTORY: Shortness of breath. COMPARISON: 05/12/2021 TECHNIQUE: Single view of the chest is submitted. FINDINGS: Demonstrated are scattered senescent parenchymal change. Increasing reticulonodular infiltrates perihilar and basilar regions bilaterally. The heart is stable. Hilar and mediastinal structures are within normal limits. Degenerative changes are seen of the dorsal spine. IMPRESSION: 1. Increasing reticulonodular infiltrates perihilar and basilar regions bilaterally.
[2021-05-15] MEDS: DEXAMETHASONE SOD PHOSPHATE 10 MG/ML 1 ML VIAL IVP SCH ×2 (08:46→20:29)
[2021-05-15] MEDS: ZINC SULFATE 220 MG CAP PO SCH (08:47)
[2021-05-15] MEDS: ENOXAPARIN 40 MG/0.4 ML SYRINGE SQ SCH (08:47)
[2021-05-15] MEDS: CHOLECALCIFEROL 25 MCG (1000 IU) TABLET PO SCH (08:47)
[2021-05-15] MEDS: FAMOTIDINE 20 MG TAB PO SCH ×2 (08:47→20:29)
[2021-05-15] MEDS: ASCORBIC ACID 500 MG TAB PO SCH (08:47)
[2021-05-15 10:43] LABS: HCT 36.5 % (37.2-46.3); HGB 11.6 g/dL (12.0-15.0); MCH 30.1 pg (27.0-32.0); MCHC 31.8 g/dL (32.0-37.0); MCV 94.6 fL (80.0-97.0); Mean Platelet Volume 9.5 fL (9.5-12.2); Platelet Count 449 X 10*3/uL (140-440); RBC 3.86 X 10*6/uL (4.10-5.20); RDW 13.2 % (11.5-14.5)
[2021-05-15 10:52] LABS: African American GFR (CKD) 115.6 (60.0-200.0); Anion Gap 12.1 mmol/L (10.00-18.00); BUN/Creat Ratio 21.17 Ratio (12.00-20.00); Blood Urea Nitrogen 12.7 mg/dL (9.0-27.0); C Reactive Protein 0.6 mg/dL (0.00-0.80); Calcium 8.6 mg/dL (8.7-10.3); Carbon Dioxide 22.9 mmol/L (20.0-27.5); Non-African American GFR(CKD) 99.8 (60.0-200.0); Potassium 4.6 mmol/L (3.5-5.5)
[2021-05-15 12:56] LABS: Basophils # (A) 0.05 X 10*3/uL (0.00-0.10); Basophils % (A) 0.5 %; Eosinophils # (A) 0 X 10*3/uL (0.04-0.35); Eosinophils % (A) 0 %; Lymphocytes # (A) 2.19 X 10*3/uL (0.90-5.00); Lymphocytes % (A) 20.3 %; Monocytes # (A) 0.57 X 10*3/uL (0.20-1.00); Monocytes % (A) 5.3 %; Neutrophils # (A) 7.66 X 10*3/uL (1.80-7.70); Neutrophils % (A) 70.8 %
[2021-05-15] MEDS: REMDESIVIR 100 MG in SODIUM CHLORIDE 0.9% 250 ML IVPB SCH (15:35)
--- NOTE | 2021-05-15 17:59 | P.PN ---
Subjective Progress Note Date: 05/15/21 Principal diagnosis: Dyspnea On 05/15/2021 patient is seen in follow-up on medical surgical floor, she is resting comfortably in bed, is not appear to be in any acute distress, she is currently on 4 L of oxygen her pulse ox is 95-100%, and FiO2 can probably be further wean down, she is afebrile, hemodynamically she is stable, she does have a cough, and exertional dyspnea, but no acute distress, she is on a Remdesivir treatment Day 4, in addition to Decadron 6 mg IV push twice daily, prophylactic dose Lovenox 40 mg, and COVID-19 vitamins. Today's labs have been reviewed, white blood cell count is 10.8, hemoglobin is 11.6, d-dimer is 1.18, electrolytes and renal profile are unremarkable, LDH is improving and is down to 444 and CRP is down to 0.6 on today's exam, pro-calcitonin level is negative at 0.06. Objective - Vital Signs Vital signs: Vital Signs Temp 97.9 F 05/15/21 14:00 Pulse 76 05/15/21 14:00 Resp 18 05/15/21 14:00 BP 103/65 05/15/21 14:00 Pulse Ox 100 05/15/21 14:00 Intake & Output 05/14/21 05/15/21 05/15/21 18:59 06:59 18:59 Intake Total 400 Balance 400 Intake: Oral 400 Other: # Voids 2 - Exam GENERAL EXAM: Alert, very pleasant, 61-year-old white female, on 4 L of oxygen with a pulse ox of 95-100% comfortable in no apparent distress. HEAD: Normocephalic/atraumatic. EYES: Normal reaction of pupils, equal size. Conjunctiva pink, sclera white. NOSE: Clear with pink turbinates. THROAT: No erythema or exudates. NECK: No masses, no JVD, no thyroid enlargement, no adenopathy. CHEST: No chest wall deformity. Symmetrical expansion. LUNGS: Equal air entry with bibasilar crackles CVS: Regular rate and rhythm, normal S1 and S2, no gallops, no murmurs, no rubs ABDOMEN: Soft, nontender. No hepatosplenomegaly, normal bowel sounds, no guarding or rigidity. EXTREMITIES: No clubbing, no edema, no cyanosis, 2+ pulses and upper and lower extremities. MUSCULOSKELETAL: Muscle strength and tone normal. SPINE: No scoliosis or deformity SKIN: No rashes CENTRAL NERVOUS SYSTEM: Alert and oriented -3. No focal deficits, tone is normal in all 4 extremities. PSYCHIATRIC: Alert and oriented -3. Appropriate affect. Intact judgment and insight. - Labs CBC & Chem 7: 05/15/21 06:13 05/15/21 06:12 Labs: Abnormal Lab Results - Last 24 Hours (Table) 05/15/21 05/15/21 05/15/21 Range/Units 06:12 06:13 06:13 WBC 10.80 H (4.50-10.00) X 10*3/uL RBC 3.86 L (4.10-5.20) X 10*6/uL Hgb 11.6 L (12.0-15.0) g/dL Hct 36.5 L (37.2-46.3) % MCHC 31.8 L (32.0-37.0) g/dL Plt Count 449 H (140-440) X 10*3/uL Plt Count Comment INCREASED A Absolute Nucleated RBC 0.02 H (0.00-0.00) X 10*3/uL Immature Gran # 0.33 H (0.00-0.04) X 10*3/uL Eosinophils # 0 L (0.04-0.35) X 10*3/uL NRBC/100 WBC Diff 0.2 H (0.0-0.0) /100 WBCS D-Dimer 1.18 H (<0.60) mg/L FEU BUN/Creatinine Ratio 21.17 H (12.00-20.00) Ratio Glucose 118 H (70-110) mg/dL Calcium 8.6 L (8.7-10.3) mg/dL Lactate Dehydrogenase 444 H (120-246) U/L Assessment and Plan Plan: Assessment: #1. Acute COVID-19 related pneumonia, patient presented with onset of symptoms less than a week, and patient was a candidate for Remdesivir on which she was initiated in addition to Decadron and Lovenox. Patient is not a vaccinated individual. Today on 05/15/2021 patient remains 4 L of oxygen #2. Acute hypoxic respiratory failure related to the above #3. Elevated inflammatory markers secondary to the above #4. Lifetime nonsmoker #5. Cataract surgery in the right eye Plan: Continue current medical treatment Today is day 4 of Remdesivir Continue Decadron, prophylactic Lovenox Continue multivitamins Weaning FiO2 to keep O2 sat ration is at or above 90% Clinical patient is stable, breathing comfortably, Inflammatory markers are improving Increase activity as tolerated We will consider discharge home in the next 24 hours if remains stable and remains on assist to 5 L of supplemental oxygen I performed a history & physical examination of the patient and discussed their management with my nurse practitioner, Leta Rodarte. I reviewed the nurse practitioner's note and agree with the documented findings and plan of care. Lung sounds are positive for dim breath sounds throughout the lung mitchell. The findings and the impression was discussed with the patient. I attest to the documentation by the nurse practitioner. Time with Patient: Less than 30
[2021-05-16] MEDS: FAMOTIDINE 20 MG TAB PO SCH (07:48)
[2021-05-16] MEDS: ZINC SULFATE 220 MG CAP PO SCH (07:48)
[2021-05-16] MEDS: ASCORBIC ACID 500 MG TAB PO SCH (07:48)
[2021-05-16] MEDS: DEXAMETHASONE SOD PHOSPHATE 10 MG/ML 1 ML VIAL IVP SCH (07:48)
[2021-05-16] MEDS: CHOLECALCIFEROL 25 MCG (1000 IU) TABLET PO SCH (07:48)
[2021-05-16] MEDS: ENOXAPARIN 40 MG/0.4 ML SYRINGE SQ SCH (07:48)
--- NOTE | 2021-05-16 11:18 | P.PN ---
Subjective Progress Note Date: 05/16/21 Principal diagnosis: Dyspnea On 05/15/2021 patient is seen in follow-up on medical surgical floor, she is resting comfortably in bed, is not appear to be in any acute distress, she is currently on 4 L of oxygen her pulse ox is 95-100%, and FiO2 can probably be further wean down, she is afebrile, hemodynamically she is stable, she does have a cough, and exertional dyspnea, but no acute distress, she is on a Remdesivir treatment Day 4, in addition to Decadron 6 mg IV push twice daily, prophylactic dose Lovenox 40 mg, and COVID-19 vitamins. Today's labs have been reviewed, white blood cell count is 10.8, hemoglobin is 11.6, d-dimer is 1.18, electrolytes and renal profile are unremarkable, LDH is improving and is down to 444 and CRP is down to 0.6 on today's exam, pro-calcitonin level is negative at 0.06. On today's evaluation on 05/16/2021 patient seen in follow-up on medical surgical floor. Patient has remained stable in the last 24 hours, no worsening dyspnea, overall she feels better too, appears to be slightly fatigued, but in no acute distress, lung sounds reveal mild crackles at bilateral bases, no wheezes, no complaints of chest discomfort, she remains on 4 L of oxygen her pulse ox is 94-97%, will try to further wean down to FiO2, she has been afebri le, she has had no acute events overnight, she finished her Remdesivir today, she remains on Decadron prophylactically Lovenox. Yesterday chest x-ray showed increasing reticulonodular infiltrates perihilar and basilar regions bilaterally. The patient has remained stable, yesterday labs have been r eviewed, artery markers were significantly improved, LDH was down to 444, and CRP was 0.60, d-dimer was 1.18. Objective - Vital Signs Vital signs: Vital Signs Temp 98.4 F 05/16/21 05:20 Pulse 64 05/16/21 05:20 Resp 15 05/16/21 05:20 BP 112/65 05/16/21 05:20 Pulse Ox 94 L 05/16/21 05:20 Intake & Output 05/15/21 05/16/21 05/16/21 18:59 06:59 18:59 Intake Total 850 200 Balance 850 200 Intake: Oral 850 200 Other: # Voids 3 1 - Exam GENERAL EXAM: Alert, very pleasant, 61-year-old white female, on 4 L of oxygen with a pulse ox of 95-100% comfortable in no apparent distress. HEAD: Normocephalic/atraumatic. EYES: Normal reaction of pupils, equal size. Conjunctiva pink, sclera white. NOSE: Clear with pink turbinates. THROAT: No erythema or exudates. NECK: No masses, no JVD, no thyroid enlargement, no adenopathy. CHEST: No chest wall deformity. Symmetrical expansion. LUNGS: Equal air entry with bibasilar crackles CVS: Regular rate and rhythm, normal S1 and S2, no gallops, no murmurs, no rubs ABDOMEN: Soft, nontender. No hepatosplenomegaly, normal bowel sounds, no guarding or rigidity. EXTREMITIES: No clubbing, no edema, no cyanosis, 2+ pulses and upper and lower extremities. MUSCULOSKELETAL: Muscle strength and tone normal. SPINE: No scoliosis or deformity SKIN: No rashes CENTRAL NERVOUS SYSTEM: Alert and oriented -3. No focal deficits, tone is normal in all 4 extremities. PSYCHIATRIC: Alert and oriented -3. Appropriate affect. Intact judgment and insight. - Labs CBC & Chem 7: 05/15/21 06:13 05/15/21 06:12 Labs: Abnormal Lab Results - Last 24 Hours (Table) 05/15/21 Range/Units 06:13 Plt Count Comment INCREASED A Immature Gran # 0.33 H (0.00-0.04) X 10*3/uL Eosinophils # 0 L (0.04-0.35) X 10*3/uL Assessment and Plan Plan: Assessment: #1. Acute COVID-19 related pneumonia, patient presented with onset of symptoms less than a week, and patient was a candidate for Remdesivir on which she was initiated in addition to Decadron and Lovenox. Patient is not a vaccinated ind ividual. Today on 05/15/2021 patient remains 4 L of oxygen #2. Acute hypoxic respiratory failure related to the above #3. Elevated inflammatory markers secondary to the above, improving #4. Lifetime nonsmoker #5. Cataract surgery in the right eye Plan: Patient is currently at 4 L of oxygen, maintaining stable O2 saturations above 92% Breathing comfortably, increase activity as tolerated She is finishing her last dose of Remdesivir today She is feeling better, inflammatory markers are improving on today's labs Patient is requesting to go home today and from pulmonary perspective she stable for discharge home today She will need supplemental oxygen to go home on, at 2-3 L/m She will need to finish outpatient course of Decadron for a total of 10 days She can continue on multivitamins including vitamin C, vitamin C and zinc Outpatient follow-up with Dr. Dash in the office in 2 weeks I performed a history & physical examination of the patient and discussed their management with my nurse practitioner, Leta Rodarte. I reviewed the nurse practitioner's note and agree with the documented findings and plan of care. Lung sounds are positive for dim breath sounds throughout the lung mitchell. The findings and the impression was discussed with the patient. I attest to the documentation by the nurse practitioner. Time with Patient: Less than 30
--- NOTE | 2021-05-16 11:27 | P.PN ---
Subjective Progress Note Date: 05/15/21 Principal diagnosis: Acute hypoxic respiratory failure secondary to COVID-19 pneumonia. Patient is a 61-year-old female without significant past medical history presents to ER with complaints of generalized weakness and fatigue for the past 1 week. Patient does have decreased appetite and subjective fevers and cough without sputum production. Came to ER for evaluation. She is also getting more short of breath. Otherwise denied any complaints of chest pain. No nausea vomiting or abdominal pain or diarrhea. On admission blood pressure was 82/57 pulse ox 89% on room air, heart rate 78 and T-max 99.3. Chest x-ray showed mild diffuse increase in lung markings mild in lower lung mitchell. Correlate for atypical pneumonia. EKG showed normal sinus rhythm. Laboratory showed sodium 131 potassium 4.8 chloride 97 BUN 16 and creatinine 0.81 Magnesium 2.4 ferritin 06/12/2007 AST 56 ALT 29 alk phos 54 LDH 1688 CRP 5.3 and procalcitonin level is 0.06 Coronavirus PCR detected. 05/13/2021 Patient is currently sitting up in the bed. Able to ambulate to the bathroom without much shortness of breath. Breathing status is getting better. Currently on 4 L oxygen via nasal cannula and saturating at 90%. No complaints of nausea or vomiting. No diarrhea. No fever no chills. Laboratory showed WBC 7.3 hemoglobin 9.7 and platelets 374 Sodium level improved to 137 chloride 109 BUN 12 and creatinine 0.71 Patient is being current dexamethasone and Lovenox and remdesivir course. Pulmonary is on board. 05/14/2021 Patient is currently able to stand and walk to the bathroom. Requiring oxygen at 4 L via nasal cannula and saturating at 91%. Tolerating oral diet. IV fluids will be reduced to 40 cc/h. No complaints of chest pain or shortness of breath. Patient is being current dexamethasone Lovenox and remdesivir course. Continue on multivitamin supplementation. Pulmonary is on board. Laboratories are reviewed. 05/15/2021 Patient is currently able to walk to the bathroom. Still having exertional dyspnea but improving clinically. Currently requiring 4 L oxygen via nasal cannula. Patient is being carried on Remdesivir treatment Day 4, dexamethasone and Lovenox subcu. Laboratory data showed WBC 10.8 hemoglobin 11.6 and platelets 449 sodium 142 potassium 4.6 BUN 12.7 and creatinine 0.6, LDH 444 and CRP 0.6. Pulmonary is following. Current medications reviewed. Objective - Vital Signs Vital signs: Vital Signs Temp 98.1 F 05/15/21 19:11 Pulse 55 L 05/15/21 19:11 Resp 16 05/15/21 19:11 BP 122/74 05/15/21 19:11 Pulse Ox 98 05/15/21 19:11 Intake & Output 05/15/21 05/15/21 05/16/21 06:59 18:59 06:59 Intake Total 850 200 Balance 850 200 Intake: Oral 850 200 Other: # Voids 2 3 - Exam PHYSICAL EXAMINATION: Patient is lying in the bed comfortably, no acute distress, awake alert and oriented.. HEENT: Normocephalic. Neck is supple. Pupils reactive. Nostrils clear. Oral cavity is moist. Neck reveals no JVD, carotid bruits, or thyromegaly. CHEST EXAMINATION: Trachea is central. Symmetrical expansion. Scattered coarse sounds. Nonlabored breathing.. CARDIAC: Normal S1, S2 with no gallops. No murmurs ABDOMEN: Soft. Bowel sounds normal. No organomegaly. No abdominal bruits. Extremities: reveal no edema. No clubbing or cyanosis Neurologically awake, alert, oriented x3 with well-coordinated movements. No focal deficits noted Skin: No rash or skin lesions. Psychiatric: Cooperative. Nonsuicidal Musculoskeletal: No joint swelling or deformity. Normal range of motion. - Labs CBC & Chem 7: 05/15/21 06:13 05/15/21 06:12 Labs: Abnormal Lab Results - Last 24 Hours (Table) 05/15/21 05/15/21 05/15/21 Range/Units 06:12 06:13 06:13 WBC 10.80 H (4.50-10.00) X 10*3/uL RBC 3.86 L (4.10-5.20) X 10*6/uL Hgb 11.6 L (12.0-15.0) g/dL Hct 36.5 L (37.2-46.3) % MCHC 31.8 L (32.0-37.0) g/dL Plt Count 449 H (140-440) X 10*3/uL Plt Count Comment INCREASED A Absolute Nucleated RBC 0.02 H (0.00-0.00) X 10*3/uL Immature Gran # 0.33 H (0.00-0.04) X 10*3/uL Eosinophils # 0 L (0.04-0.35) X 10*3/uL NRBC/100 WBC Diff 0.2 H (0.0-0.0) /100 WBCS D-Dimer 1.18 H (<0.60) mg/L FEU BUN/Creatinine Ratio 21.17 H (12.00-20.00) Ratio Glucose 118 H (70-110) mg/dL Calcium 8.6 L (8.7-10.3) mg/dL Lactate Dehydrogenase 444 H (120-246) U/L Assessment and Plan Assessment: Acute hypoxic respiratory failure secondary to COVID-19 pneumonia Acute COVID-19 pneumonia symptoms for the past 1 week. Patient is not vaccinated. Elevated inflammatory markers secondary to COVID-19 infection Hypovolemic hyponatremia DVT prophylaxis. Plan: Patient with cannula oxygen supplementation currently on 4 L oxygen via nasal cannula. Patient was started on remdesivir therapy. Day 4 Continue with dexamethasone multivitamins and Lovenox subcu. GI prophylaxis. Pulmonary is on board. Follow closely.
--- NOTE | 2021-05-16 11:30 | P.DS ---
Providers Date of admission: 05/12/21 13:02 Expected date of discharge: 05/16/21 Attending physician: Bernadine Lomeli Consults: 05/12/21 12:44 Consult Physician Urgent Consulting Provider: Marita Dash Consult Reason/Comments: covid, hypoxia Do you want consulting provider notified?: Yes Primary care physician: Andrea Cruz [facility] Course: 05/16/2021 Patient is currently awake alert and oriented 3. No complains of chest pain or worsening short of breath. Patient is requiring 4 L oxygen via nasal cannula. Breathing status is much improved except mild exertional dyspnea. Patient doesn't require home oxygen. Home oxygen evaluation is being done. Patient is a 5 ofRemdesivir today. Plan patient encouraged on dexamethasone 6 mg daily for a total of 10 days. Inflammatory markers are trending down. Patient is being discharged home today. Follow with pulmonary in the clinic in the next 2 weeks. Patient Condition at Discharge: Stable Plan - Discharge Summary Discharge Rx Participant: Yes New Discharge Prescriptions: New Albuterol Inhaler [Ventolin Hfa Inhaler] 2 puff INHALATION RT-QID PRN 30 Days #8 gm PRN Reason: Shortness Of Breath Zinc Sulfate [Orazinc] 220 mg PO DAILY #30 cap Dexamethasone [Decadron] 6 mg PO DAILY 6 Days #6 tablet Famotidine [Pepcid] 20 mg PO BID #28 tab Ascorbic Acid [Vitamin C] 500 mg PO DAILY #30 tab Cholecalciferol [Vitamin D3 (25 Mcg = 1000 Iu)] 25 mcg PO DAILY #30 tablet Discharge Medication List Albuterol Inhaler [Ventolin Hfa Inhaler] 2 puff INHALATION RT-QID PRN 30 Days #8 gm 05/16/21 [Rx] Ascorbic Acid [Vitamin C] 500 mg PO DAILY #30 tab 05/16/21 [Rx] Cholecalciferol [Vitamin D3 (25 Mcg = 1000 Iu)] 25 mcg PO DAILY #30 tablet 05/16/21 [Rx] Dexamethasone [Decadron] 6 mg PO DAILY 6 Days #6 tablet 05/16/21 [Rx] Famotidine [Pepcid] 20 mg PO BID #28 tab 05/16/21 [Rx] Zinc Sulfate [Orazinc] 220 mg PO DAILY #30 cap 05/16/21 [Rx] Follow up Appointment(s)/Referral(s): Andrea Cruz MD [Primary Care Provider] - 1-2 days [facility] [NON-STAFF] - As Needed (oxygen) Marita Dash MD [STAFF PHYSICIAN] - 1 Week Discharge Disposition: HOME SELF-CARE
[2021-05-16 11:37] VITALS: BP 108/69; PULSE 63; RESP 22; TEMP 98.1
[2021-05-16] MEDS: REMDESIVIR 100 MG in SODIUM CHLORIDE 0.9% 250 ML IVPB SCH (12:49)
== END 2021-05-16 14:11 | disposition home or self-care (01) | DRG 177 ==
LOC: EC 10:35 → 4SSUR 13:02
PROVIDERS: ADMIT Internal Medicine; ATTEND Internal Medicine
PROC: XW033E5 Introduction of Remdesivir Anti-infective into Peripheral Vein, Percutaneous Approach, New Technology Group 5 (ICD-10-PCS; principal; 2021-05-12)
DX: U07.1 COVID-19 (principal); J12.82 Pneumonia due to coronavirus disease 2019; J96.01 Acute respiratory failure with hypoxia; E87.1 Hypo-osmolality and hyponatremia; E86.1 Hypovolemia; Z98.41 Cataract extraction status, right eye; Z87.42 Personal history of other diseases of the female genital tract; Z98.890 Other specified postprocedural states; Z83.3 Family history of diabetes mellitus; Z80.3 Family history of malignant neoplasm of breast
CPT/HCPCS: 36415; 71045; 80048; 80053; 82728; 83605; 83615; 83735; 84145; 85025; 85379; 85610; 85730; 86140; 87635; 93005; 96374; 99285

== ENCOUNTER 2023-07-08 03:31 | Emergency (ER) | payer BC ==
[2023-07-08 04:09] VITALS: RESP 18; TEMP 98
[2023-07-08 05:59] LABS: Basophils % (A) 0 %; Eosinophils # (A) 0.1 k/uL (0-0.7); Eosinophils % (A) 1 %; HCT 41.4 % (34.0-46.0); HGB 13.8 gm/dL (11.4-16.0); Lymphocytes # (A) 1.6 k/uL (1.0-4.8); Lymphocytes % (A) 23 %; MCH 31.2 pg (25.0-35.0); MCHC 33.2 g/dL (31.0-37.0); MCV 93.8 fL (80.0-100.0); Mean Platelet Volume 7.5; Monocytes # (A) 0.2 k/uL (0-1.0); Monocytes % (A) 3 %; Neutrophils # (A) 5.1 k/uL (1.3-7.7); Neutrophils % (A) 71 %; Platelet Count 284 k/uL (150-450); RBC 4.42 m/uL (3.80-5.40); RDW 12.8 % (11.5-15.5); WBC 7.1 k/uL (3.8-10.6)
[2023-07-08 06:01] LABS: Appearance,Urine Clear (Clear); Bacteria,Urine Moderate /hpf; Bilirubin,Urine Negative (Negative); Blood,Urine Negative (Negative); Color,Urine Yellow; Glucose,Urine (UA) Negative (Negative); Ketones,Urine 2+ (Negative); Leukocyte Esterase,Urine Trace (Negative); Mucus,Urine Many /hpf; Nitrite,Urine Negative (Negative); Protein,Urine Trace (Negative); RBC,Urine 11 /hpf (0-5); Specific Gravity,Urine 1.027 (1.001-1.035); Squamous Epithelial Cell,Urine <1 /hpf (0-4); Urobilinogen,Urine <2.0 mg/dL (<2.0); WBC,Urine 12 /hpf (0-5)
[2023-07-08 06:11] LABS: ALT 23 U/L (4-34); AST 31 U/L (14-36); African American GFR (CKD) >90 (>60 ml/min/1.73 sqM); Albumin 5.1 g/dL (3.5-5.0); Alkaline Phosphatase 80 U/L (38-126); Anion Gap 11 mmol/L; Blood Urea Nitrogen 16 mg/dL (7-17); Calcium 9.9 mg/dL (8.4-10.2); Carbon Dioxide 23 mmol/L (22-30); Chloride 108 mmol/L (98-107); Glucose 119 mg/dL (74-99); Lipase 101 U/L (23-300); Non-African American GFR(CKD) 88 (>60 ml/min/1.73 sqM); Potassium 4.4 mmol/L (3.5-5.1); Sodium 142 mmol/L (137-145); Total Bilirubin 0.6 mg/dL (0.2-1.3); Total Protein 8.2 g/dL (6.3-8.2)
[2023-07-08] MEDS ORDERED: GLUCAGON 1 MG/ML VIAL IVP STA ×2 (06:24→07:41)
[2023-07-08] MEDS ORDERED: METOCLOPRAMIDE 5 MG/ML 2 ML VIAL IVP STA (06:24)
[2023-07-08] MEDS ORDERED: SODIUM CHLORIDE 0.9% 1,000 ML IV ONE (06:28)
--- NOTE | 2023-07-08 06:31 | ED ---
Abdominal Pain HPI - General Chief Complaint: Abdominal Pain Stated Complaint: Hiatal Hernia, unable to eat/drink Time Seen by Provider: 07/08/23 06:12 Source: patient, RN notes reviewed Mode of arrival: ambulatory Limitations: no limitations - History of Present Illness Initial Comments: 63-year-old female presents emergency department with chief complaint of nausea vomiting. Patient states that she feels that she has a piece of steak stuck in her s esophagus. Patient states she has had this happen in the past usually passes after a few hours. Patient states that she has never had an EGD. Patient states she feels like it is in her lower esophagus. She believes she has a hiatal hernia. Patient denies any diarrhea constipation no fevers or c hills - Related Data Previous Rx's Medication Instructions Recorded Albuterol Inhaler [Ventolin Hfa 2 puff INHALATION RT-QID PRN 30 05/16/21 Inhaler] Days #8 gm Ascorbic Acid [Vitamin C] 500 mg PO DAILY #30 tab 05/16/21 Cholecalciferol [Vitamin D3 (25 25 mcg PO DAILY #30 tablet 05/16/21 Mcg = 1000 Iu)] Famotidine [Pepcid] 20 mg PO BID #28 tab 05/16/21 Zinc Sulfate [Orazinc] 220 mg PO DAILY #30 cap 05/16/21 dexAMETHasone [Decadron] 6 mg PO DAILY 6 Days #6 tablet 05/16/21 Omeprazole [PriLOSEC] 20 mg PO AC-BRKFST #14 cap 07/08/23 Allergies Allergy/AdvReac Type Severity Reaction Status Date / Time No Known Allergies Allergy Verified 07/08/23 03:56 Review of Systems ROS Statement: Those systems with pertinent positive or pertinent negative responses have been documented in the HPI. ROS Other: All systems not noted in ROS Statement are negative. 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 History of Any Multi-Drug Resistant Organisms: None Reported Additional Past Surgical History / Comment(s): cataract right eye, D&C 1994. Past Psychological History: No Psychological Hx Reported Smoking Status: Never smoker Past Alcohol Use History: Occasional Past Drug Use History: None Reported - Past Family History Father Family Medical History: Diabetes Mellitus Additional Family Medical History / Comment(s): Paternal grandmother had breast cancer. General Exam Limitations: no limitations General appearance: alert, in no apparent distress Head exam: Present: atraumatic, normocephalic, normal inspection Eye exam: Present: normal appearance, PERRL, EOMI. Absent: scleral icterus, conjunctival injection, periorbital swelling ENT exam: Present: normal exam, normal oropharynx, mucous membranes moist Neck exam: Present: normal inspection, full ROM. Absent: tenderness, meningismus, lymphadenopathy Respiratory exam: Present: normal lung sounds bilaterally. Absent: respiratory distress, wheezes, rales, rhonchi, stridor Cardiovascular Exam: Present: regular rate, normal rhythm, normal heart sounds. Absent: systolic murmur, diastolic murmur, rubs, gallop, clicks GI/Abdominal exam: Present: soft, tenderness, normal bowel sounds. Absent: distended, guarding, rebound, rigid Course Vital Signs 07/08/23 07/08/23 03:55 07:52 Temperature 98 F Pulse Rate 61 88 Respiratory 18 18 Rate Blood Pressure 127/83 125/74 O2 Sat by Pulse 100 99 Oximetry Medical Decision Making - Medical Decision Making Was pt. sent in by a medical professional or institution (, PA, HISTOLOGY TECH, urgent care, hospital, or alf...) When possible be specific @ -No Did you speak to anyone other than the patient for history (EMS, parent, family, police, friend...)? What history was obtained from this source @ -No Did you review nursing and triage notes (agree or disagree)? Why? @ -I reviewed and agree with nursing and triage notes Were old charts reviewed (outside hosp., previous admission, EMS record, old EKG, old radiological studies, urgent care reports/EKG's, alf records)? Report findings @ -No old charts were reviewed Differential Diagnosis (chest pain, altered mental status, abdominal pain women, abdominal pain men, vaginal bleeding, weakness, fever, dyspnea, syncope, headache, dizziness, GI bleed, back pain, seizure, CVA, palpatations, mental hea lth, musculoskeletal)? @ -Differential Abdominal Pain Women: Appendicitis, Cholecystitis, diverticulosis, ischemic bowel, pancreatitis, hepatitis, UTI, gastroenteritis, AAA, incarcerated hernia, bowel obstruction, constipation, inflammatory bowel, hepatitis, peptic ulcer disease, splenic infarction, perforated viscus, vulvitis, ovarian torsion, PID, kidney stone, placenta abruption, this is not meant to be an all-inclusive list EKG interpreted by me (3pts min.). @ -None X-rays interpreted by me (1pt min.). @ -[Chest shows no acute cardiopulmonary process X-ray KUB shows no acute process CT interpreted by me (1pt min.). @ -None done U/S interpreted by me (1pt. min.). @ -None done What testing was considered but not performed or refused? (CT, X-rays, U/S, labs)? Why? @ -None What meds were considered but not given or refused? Why? @ -None Did you discuss the management of the patient with other professionals (professionals i.e. , PA, HISTOLOGY TECH, lab, RT, psych nurse, social science instructor, occasional babysitter, t eacher, ecological technical officer, bottle caser)? Give summary @ -No Was smoking cessation discussed for >3mins.? @ -No Was critical care preformed (if so, how long)? @ -No Were there social determinants of health that impacted care today? How? (Homelessness, low income, unemployed, alcoholism, drug addiction, transportation, low edu. Level, literacy, decrease access to med. care, usp, rehab)? @ -No Was there de-escalation of care discussed even if they declined (Discuss DNR or withdrawal of care, Hospice)? DNR status @ -No What co-morbidities impacted this encounter? (DM, HTN, Smoking, COPD, CAD, Cance r, CVA, ARF, Chemo, Hep., AIDS, mental health diagnosis, sleep apnea, morbid obesity)? @ -None Was patient admitted / discharged? Hospital course, mention meds given and route, prescriptions, significant lab abnormalities, going to OR and other pertinent info. @ -[Discharge patient presented for nausea vomiting related to esophageal food bolus. Patient was given 2 rounds of glucagon, Valium and Reglan with relief of her symptoms. She is tolerating oral intake. She has had this happen multiple times in the past she is advised that she needs to follow-up with GI for an EGD and will be started on omeprazole. Undiagnosed new problem with uncertain prognosis? @ -No Drug Therapy requiring intensive monitoring for toxicity (Heparin, Nitro, Insulin, Cardizem)? @ -No Were any procedures done? @ -No Diagnosis/symptom? @ -Impacted esophageal food bolus Acute, or Chronic, or Acute on Chronic? @ -Acute Uncomplicated (without systemic symptoms) or Complicated (systemic symptoms)? @ -unComplicated Side effects of treatment? @ -No Exacerbation, Progression, or Severe Exacerbation? @ -No Poses a threat to life or bodily function? How? (Chest pain, USA, IA, pneumonia, PE, COPD, DKA, ARF, appy, cholecystitis, CVA, Diverticulitis, Homicidal, Suicidal, threat to staff... and all critical care pts) @ -No - Lab Data Result diagrams: 07/08/23 05:41 07/08/23 05:41 Lab Results 07/08/23 07/08/23 07/08/23 Range/Units 05:41 05:41 05:41 WBC 7.1 (3.8-10.6) k/uL RBC 4.42 (3.80-5.40) m/uL Hgb 13.8 (11.4-16.0) gm/dL Hct 41.4 (34.0-46.0) % MCV 93.8 (80.0-100.0) fL MCH 31.2 (25.0-35.0) pg MCHC 33.2 (31.0-37.0) g/dL RDW 12.8 (11.5-15.5) % Plt Count 284 (150-450) k/uL MPV 7.5 Neutrophils % 71 % Lymphocytes % 23 % Monocytes % 3 % Eosinophils % 1 % Basophils % 0 % Neutrophils # 5.1 (1.3-7.7) k/uL Lymphocytes # 1.6 (1.0-4.8) k/uL Monocytes # 0.2 (0-1.0) k/uL Eosinophils # 0.1 (0-0.7) k/uL Basophils # 0.0 (0-0.2) k/uL Sodium 142 (137-145) mmol/L Potassium 4.4 (3.5-5.1) mmol/L Chloride 108 H (98-107) mmol/L Carbon Dioxide 23 (22-30) mmol/L Anion Gap 11 mmol/L BUN 16 (7-17) mg/dL Creatinine 0.74 (0.52-1.04) mg/dL Est GFR (CKD-EPI)AfAm >90 (>60 ml/min/1.73 sqM) Est GFR (CKD-EPI)NonAf 88 (>60 ml/min/1.73 sqM) Glucose 119 H (74-99) mg/dL Calcium 9.9 (8.4-10.2) mg/dL Total Bilirubin 0.6 (0.2-1.3) mg/dL AST 31 (14-36) U/L ALT 23 (4-34) U/L Alkaline Phosphatase 80 (38-126) U/L Total Protein 8.2 (6.3-8.2) g/dL Albumin 5.1 H (3.5-5.0) g/dL Lipase 101 (23-300) U/L Urine Color Yellow Urine Appearance Clear (Clear) Urine pH 7.0 (5.0-8.0) Ur Specific Francis 1.027 (1.001-1.035) Urine Protein Trace H (Negative) Urine Glucose (UA) Negative (Negative) Urine Ketones 2+ H (Negative) Urine Blood Negative (Negative) Urine Nitrite Negative (Negative) Urine Bilirubin Negative (Negative) Urine Urobilinogen <2.0 (<2.0) mg/dL Ur Leukocyte Esterase Trace H (Negative) Urine RBC 11 H (0-5) /hpf Urine WBC 12 H (0-5) /hpf Ur Squamous Epith Cells <1 (0-4) /hpf Urine Bacteria Moderate H (None) /hpf Urine Mucus Many H (None) /hpf Disposition Clinical Impression: Esophageal obstruction due to food impaction Disposition: HOME SELF-CARE Condition: Stable Instructions (If sedation given, give patient instructions): Hiatal Hernia (ED), Esophageal Stricture (ED) Additional Instructions: Please return to the Emergency Department if symptoms worsen or any other concerns. Prescriptions: Omeprazole [PriLOSEC] 20 mg PO AC-BRKFST #14 cap Is patient prescribed a controlled substance at d/c from ED?: No Referrals: Andrea Cruz MD [Primary Care Provider] - 1-2 days Tiarra Mckenzie MD [STAFF PHYSICIAN] - 1-2 days Time of Disposition: 08:36
[2023-07-08] MEDS ORDERED: NITROGLYCERIN SL TABS 0.4 MG TAB SUBLINGUAL STA (06:57)
--- NOTE | 2023-07-08 07:36 | XR ---
EXAMINATION TYPE: XR chest 1V portable DATE OF EXAM: 07/08/2023 HISTORY: Shortness of breath. COMPARISON: 05/15/2021 TECHNIQUE: Single view of the chest is submitted. FINDINGS: Demonstrated are scattered senescent parenchymal change. There is no evidence for focal infiltrate. The heart is stable. Hilar and mediastinal structures are within normal limits. Degenerative changes are seen of the dorsal spine. IMPRESSION: 1. Chronic changes without evidence for acute pulmonary disease.
--- NOTE | 2023-07-08 07:36 | XR ---
EXAMINATION TYPE: XR KUB DATE OF EXAM: 07/08/2023 COMPARISON: NONE HISTORY: Pain TECHNIQUE: Single supine KUB image of the abdomen is obtained FINDINGS: Small bowel demonstrates no evidence for dilatation or air fluid levels. Gas and fecal material is seen in non-distended colon. No convincing evidence for pneumoperitoneum. No unusual calcifications. The lung bases are clear. The osseous structures are intact. IMPRESSION: 1. Overall nonobstructive bowel gas pattern.
[2023-07-08 08:13] VITALS: BP 125/74; PULSE 88
== END 2023-07-08 09:28 | disposition home or self-care (01) ==
LOC: EC 03:31
DX: K22.2 Esophageal obstruction (principal); T18.128A Food in esophagus causing other injury, initial encounter; W44.F3XA Food entering into or through a natural orifice, initial encounter
CPT/HCPCS: 36415; 80053; 83690; 85025; 81001; 71045; 74018; 99284; 96374; 96375 ×2; 96376; 96361 ×3; J1610; J2765; J3360

== ENCOUNTER → 2023-12-25 | Outpatient (CLI) | payer BC ==
[2023-12-25 09:57] VITALS: BP 107/63; PULSE 67; RESP 16; TEMP 98.2
--- NOTE | 2023-12-25 11:04 | P.HPOB ---
History of Present Illness H&P Date: 12/25/23 Chief Complaint: The patient is here for her routine gynecologic exam and ma mmogram. This is a 63-year-old -0-1-2 with an LMP of 2017. The patient is here to reestablish with this office. She was last seen in 2018. She is without gynecologic complaints and denies any postmenopausal bleeding Review of Systems The patient's weight has been stable over the last year. She denies respiratory, cardiac, or G.I. problems. Past Medical History Past Medical History: GERD/Reflux Additional Past Medical History / Comment(s): Esophageal stricture improved with dilation. 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 History of Any Multi-Drug Resistant Organisms: None Reported Additional Past Surgical History / Comment(s): cataract right eye, D&C 1994. Upper endoscopy with esophageal dilation. Past Psychological History: No Psychological Hx Reported Smoking Status: Never smoker Past Alcohol Use History: Occasional (4 drinks per week.) Past Drug Use History: None Reported Additional History: He has been since 2013 and this is her second marriage. 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 - Past Family History Father Family Medical History: Diabetes Mellitus Additional Family Medical History / Comment(s): Paternal grandmother had breast cancer. Medications and Allergies Home Medications Medication Instructions Recorded Confirmed Type Omeprazole [PriLOSEC] 20 mg PO AC-BRKFST #14 cap 07/08/23 12/25/23 Rx Allergies Allergy/AdvReac Type Severity Reaction Status Date / Time No Known Allergies Allergy Verified 12/25/23 09:55 Exam Vital Signs Temp Pulse Resp BP Pulse Ox 12/25/23 09:56 98.2 F 67 16 107/63 97 Intake and Output 12/24/23 12/25/23 12/25/23 22:59 06:59 14:59 Other: Weight 58.06 kg Height 5 feet 4 inches, weight 128 pounds, BMI 22.0. This is a well-developed well-nourished white female who is alert and oriented times 3 in no acute distress. HEENT: Within normal limits. NECK: Supple without mass or thyromegaly. CHEST AND LUNGS: Clear to auscultation. HEART: Regular rate and rhythm. BREASTS: Are without mass or discharge. There is bilateral central nipple inversion. The patient states she has had this since breast-feeding after her . AXILLARY EXAM: Negative for adenopathy. BACK: Negative for CVA tenderness. ABDOMEN: Soft, nontender, without palpable masses. PELVIC EXAM: Normal external genitalia with mild atrophy. Cervix and vagina appear normal with mild atrophy. There is no unusual discharge. There is no evidence of prolapse. The uterus is midposition, nongravid size and nontender. There are no palpable adnexal masses or tenderness. RECTAL EXAM: Rectovaginal exam is negative for mass or tenderness and is negative for occult blood. EXTREMITIES: Nontender. IMPRESSION: 1. 63-year-old menopausal female with normal gynecologic exam. PLAN: 1. Pap smear cotest was performed. 2. Self breast awareness was discussed with the patient. We have also discussed symptoms associated with inflammatory breast cancer. 3. Screening mammogram will be done today. 4. Osteoporosis prevention was discussed. I have stressed the importance of adequate calcium, vitamin D and regular exercise. Recommended amounts of calcium and vitamin D were also discussed. I have recommended bone density testing based on her age. This will be a baseline study. 5. She states she is planning to have a colonoscopy scheduled through her PCP in the near future. 6. She was advised to return in one year for her annual well woman exam.
== END | disposition home or self-care (01) ==
LOC: RADMAMWWP 09:45
PROVIDERS: ATTEND Obstetrics & Gynecology
DX: Z12.31 Encounter for screening mammogram for malignant neoplasm of breast (principal); Z80.3 Family history of malignant neoplasm of breast
CPT/HCPCS: 77067